=== PATIENT | female | born 1990 | race Caucasian/White ===

== ENCOUNTER 2018-04-01 18:07 | Inpatient (IN) | payer OTHER ==
[2018-04-01] MEDS ORDERED: ONDANSETRON 4 MG INJ IV (19:00)
[2018-04-01] MEDS ORDERED: ACETAMINOPHEN 325 MG TAB PO (19:00)
[2018-04-01] MEDS: SODIUM CHLORIDE 0.9% 1L BAG IV* (19:16)
[2018-04-01] MEDS: CEFTRIAXONE 2 GM/50 ML (PMX) 50 ML IVPB (19:16)
[2018-04-01] MEDS: ACETAMINOPHEN 325 MG TAB PO (19:16)
[2018-04-01 19:21] LABS: ADD MAN DIFF? NO
[2018-04-01 19:30] LABS: ABNORMAL IP MESSAGE 1; BASOPHILS % 0.1 % (0.0-2.0); EOSINOPHILS # 0.3 10^3/ul (0.0-0.5); EOSINOPHILS % 2.4 % (0.0-7.0); HEMATOCRIT 39.3 % (37.0-47.0); HEMOGLOBIN 13.2 g/dl (12.0-16.0); LYMPHOCYTES # 0.5 10^3/ul (0.8-2.9); LYMPHOCYTES % 4.4 % (15.0-51.0); MEAN CORPUSCULAR HEMOGLOBIN 29.7 pg (29.0-33.0); MEAN CORPUSCULAR HGB CONC 33.6 g/dl (32.0-37.0); MEAN CORPUSCULAR VOLUME 88.3 fl (82.0-101.0); MEAN PLATELET VOLUME 9.5 fl (7.4-10.4); MONOCYTE # 0.8 10^3/ul (0.3-0.9); MONOCYTES % 7.4 % (0.0-11.0); NEUTROPHIL # 9.4 10^3/ul (1.6-7.5); NEUTROPHILS % 84.8 % (39.0-77.0); PLATELET COUNT 185 10^3/UL (140-415); RED BLOOD COUNT 4.45 10^6/ul (4.20-5.40)
[2018-04-01 19:38] LABS: POSITIVE DIFF @See below
[2018-04-01 19:47] LABS: ALANINE AMINOTRANSFERASE 25 IU/L (13-69); ALBUMIN 3.5 g/dl (3.3-4.9); ALBUMIN/GLOBULIN RATIO 1.02; ALKALINE PHOSPHATASE 51 IU/L (42-121); ANION GAP 14 (8-16); ASPARTATE AMINO TRANSFERASE 16 IU/L (15-46); BILIRUBIN,INDIRECT 0.2 mg/dl (0-1.1); BILIRUBIN,TOTAL 0.2 mg/dl (0.2-1.3); BLOOD UREA NITROGEN 13 mg/dl (7-20); CALCIUM 8.8 mg/dl (8.4-10.2); CARBON DIOXIDE 21 mmol/L (21-31); CHLORIDE 103 mmol/L (97-110); CREATININE 1.29 mg/dl (0.44-1.00); GLUCOSE 108 mg/dl (70-220); POTASSIUM 3.7 mmol/L (3.5-5.1); SODIUM 134 mmol/L (135-144); TOTAL PROTEIN 6.9 g/dl (6.1-8.1)
[2018-04-01] MEDS: VANCOMYCIN 1 GM (PMX) 250 ML IVPB (19:48)
[2018-04-01 19:51] LABS: LACTIC ACID 0.9 mmol/L (0.5-2.0)
[2018-04-01 19:55] LABS: PROTIME 14.4 Sec (11.9-14.9); PT RATIO 1.1
[2018-04-01 19:56] LABS: PARTIAL THROMBOPLASTIN TIME 31.9 Sec (25.0-35.0)
[2018-04-01 19:59] LABS: TROPONIN-I < 0.010 ng/ml (0.000-0.120)
[2018-04-01] MEDS ORDERED: NACL 0.9% 3 ML SYG IV (20:00)
[2018-04-01] MEDS: ACYCLOVIR 500 MG in SOD CHLORIDE 0.9% 100 ML IVPB (20:03)
[2018-04-01] MEDS ORDERED: SOD CHLORIDE 0.9% 500 ML IV (21:00)
[2018-04-01 21:51] LABS: ADD UMIC YES; UR AMORPHOUS CRYSTAL FEW /HPF (NONE SEEN); UR ASCORBIC ACID NEGATIVE (NEGATIVE); UR BACTERIA FEW /HPF (NONE SEEN); UR BILIRUBIN (Dip) NEGATIVE (NEGATIVE); UR BLOOD (Dip) 2+ mg/dL (NEGATIVE); UR CLARITY CLOUDY (CLEAR); UR COLOR YELLOW (YELLOW); UR GLUCOSE (Dip) NEGATIVE (NEGATIVE); UR KETONES (Dip) NEGATIVE (NEGATIVE); UR LEUKOCYTE ESTERASE (Dip) 3+ Leu/ul (NEGATIVE); UR NITRITE (Dip) NEGATIVE (NEGATIVE); UR RBC 2 /HPF (0-5); UR SPECIFIC GRAVITY (Dip) 1.005 (1.003-1.030); UR SQUAMOUS EPITHELIAL CELL MODERATE /HPF (FEW); UR TOTAL PROTEIN (Dip) 1+ mg/dl (NEGATIVE); UR UROBILINOGEN (Dip) NEGATIVE (NEGATIVE); UR WBC 48 /HPF (0-5)
[2018-04-01] MEDS: morphine 2 MG INJ IV (22:48)
[2018-04-01] MEDS ORDERED: VANCOMYCIN IV PER PHARMACY XX (23:30)
[2018-04-01 23:44] LABS: LACTIC ACID 1.2 mmol/L (0.5-2.0)
[2018-04-01] MEDS: SOD CHLORIDE 0.9% 1,000 ML IV (23:56)
[2018-04-02] MEDS: SOD CHLORIDE 0.9% 1,000 ML IV ×3 (00:32→14:42)
[2018-04-02] MEDS: KETOROLAC 30 MG INJ IV (00:32)
[2018-04-02] MEDS: PIPER-TAZO 3.375 GM IV (PMX) 100 ML IVPB ×3 (00:32→13:50)
[2018-04-02] MEDS: ACETAMINOPHEN 325 MG TAB PO ×2 (01:18→07:30)
[2018-04-02] MEDS: VANCOMYCIN 1.25 GM in SOD CHLORIDE 0.9% 250 ML IVPB ×2 (02:59→14:43)
[2018-04-02] MEDS: ACYCLOVIR 500 MG in SOD CHLORIDE 0.9% 100 ML IVPB ×2 (02:59→10:31)
[2018-04-02 05:37] LABS: WHITE BLOOD COUNT 10.8 10^3/ul (4.8-10.8)
[2018-04-02 05:37] LABS: ABNORMAL IP MESSAGE 1; HEMATOCRIT 35.2 % (37.0-47.0); HEMOGLOBIN 11.5 g/dl (12.0-16.0); MEAN CORPUSCULAR HEMOGLOBIN 29.6 pg (29.0-33.0); MEAN CORPUSCULAR HGB CONC 32.7 g/dl (32.0-37.0); MEAN CORPUSCULAR VOLUME 90.7 fl (82.0-101.0); PLATELET COUNT 171 10^3/UL (140-415); RED BLOOD COUNT 3.88 10^6/ul (4.20-5.40); RED CELL DISTRIBUTION WIDTH 13.2 % (11.5-14.5)
[2018-04-02 05:46] LABS: ADD MAN DIFF? YES; POSITIVE DIFF @See below
[2018-04-02 05:47] LABS: HEMOGLOBIN A1C 5.3 % (0-5.9)
[2018-04-02 05:57] LABS: ALANINE AMINOTRANSFERASE 22 IU/L (13-69); ALBUMIN 2.6 g/dl (3.3-4.9); ALBUMIN/GLOBULIN RATIO 0.92; ALKALINE PHOSPHATASE 38 IU/L (42-121); ANION GAP 13 (8-16); ASPARTATE AMINO TRANSFERASE 15 IU/L (15-46); BILIRUBIN,INDIRECT 0.4 mg/dl (0-1.1); BILIRUBIN,TOTAL 0.4 mg/dl (0.2-1.3); BLOOD UREA NITROGEN 9 mg/dl (7-20); CALCIUM 7.4 mg/dl (8.4-10.2); CARBON DIOXIDE 22 mmol/L (21-31); CHLORIDE 107 mmol/L (97-110); CHOL/HDL RATIO 2.6 RATIO; CHOLESTEROL 77 mg/dl (100-200); CREATININE 1.23 mg/dl (0.44-1.00); GLUCOSE 85 mg/dl (70-220); HDL CHOLESTEROL 29 mg/dl (33-83); LDL CHOLESTEROL,CALCULATED 36 mg/dl; MAGNESIUM 1.2 mg/dl (1.7-2.5); POTASSIUM 3.6 mmol/L (3.5-5.1); SODIUM 138 mmol/L (135-144); TOTAL PROTEIN 5.4 g/dl (6.1-8.1); TRIGLYCERIDES 62 mg/dl (0-149)
[2018-04-02 05:58] LABS: LACTIC ACID 1.2 mmol/L (0.5-2.0)
[2018-04-02] MEDS: morphine 2 MG INJ IV ×2 (06:22→11:31)
[2018-04-02] MEDS: ONDANSETRON 4 MG INJ IV (06:22)
[2018-04-02 08:35] LABS: BAND NEUTROPHILS #M 2.2 10^3/ul (0.0-0.6); BAND NEUTROPHILS % (M) 21 % (0-4); EOSINOPHILS % (M) 1 % (0-7); GIANT THROMBO% (M) 1 % (0-0); LYMPHOCYTES #M 0.5 10^3/ul (0.8-2.9); LYMPHOCYTES % (M) 5 % (15-51); MONOCYTE #M 0.4 10^3/ul (0.3-0.9); MONOCYTES % (M) 4 % (0-11); PLATELET ESTIMATE NORMAL; SEG NEUT #M 7.7 10^3/ul (1.6-7.5); SEGMENTED NEUTROPHILS (M) % 69 % (39-77); SMUDGE%M 2 % (0-0)
[2018-04-02] MEDS: FLUCONAZOLE 150 MG TAB PO (10:31)
[2018-04-02] MEDS: NYSTATIN 30 GM POWDER BTL TOP ×2 (10:31→20:27)
[2018-04-02] MEDS: HYDROCODONE/APAP (5/325) TAB PO ×2 (14:42→20:27)
[2018-04-02 16:39] LABS: CREATINE KINASE 26 IU/L (23-200)
[2018-04-02] MEDS: MEROPENEM 1 GM/50ML(PMX) 50 ML IVPB ×2 (17:23→21:39)
[2018-04-02] MEDS: ACYCLOVIR 700 MG in SOD CHLORIDE 0.9% 100 ML IVPB (18:08)
[2018-04-02 18:51] LABS: CREATININE,URINE RANDOM 82.39 mg/dl (20-320)
[2018-04-02 18:53] LABS: SODIUM,URINE RANDOM 64 mmol/L (30-90)
[2018-04-03] MEDS: ONDANSETRON 4 MG INJ IV (00:32)
[2018-04-03] MEDS: ACYCLOVIR 700 MG in SOD CHLORIDE 0.9% 100 ML IVPB ×3 (01:32→19:13)
[2018-04-03] MEDS: VANCOMYCIN 1.25 GM in SOD CHLORIDE 0.9% 250 ML IVPB (03:20)
[2018-04-03 05:14] LABS: ABNORMAL IP MESSAGE 1; HEMATOCRIT 31.6 % (37.0-47.0); HEMOGLOBIN 10.3 g/dl (12.0-16.0); MEAN CORPUSCULAR HEMOGLOBIN 29.2 pg (29.0-33.0); MEAN CORPUSCULAR HGB CONC 32.6 g/dl (32.0-37.0); MEAN CORPUSCULAR VOLUME 89.5 fl (82.0-101.0); MEAN PLATELET VOLUME 10.1 fl (7.4-10.4); PLATELET COUNT 130 10^3/UL (140-415); RED BLOOD COUNT 3.53 10^6/ul (4.20-5.40); RED CELL DISTRIBUTION WIDTH 13.8 % (11.5-14.5)
[2018-04-03 05:19] LABS: ADD MAN DIFF? YES; POSITIVE DIFF @See below
[2018-04-03 05:43] LABS: PHOSPHORUS 3.3 mg/dl (2.5-4.9)
[2018-04-03 05:43] LABS: MAGNESIUM 1.3 mg/dl (1.7-2.5)
[2018-04-03] MEDS: MEROPENEM 1 GM/50ML(PMX) 50 ML IVPB ×2 (05:44→16:21)
[2018-04-03] MEDS: DIPHENHYDRAMINE 50 MG INJ IV ×3 (05:44→20:14)
[2018-04-03 05:45] LABS: ALANINE AMINOTRANSFERASE 30 IU/L (13-69); ALBUMIN 2.4 g/dl (3.3-4.9); ALBUMIN/GLOBULIN RATIO 0.85; ALKALINE PHOSPHATASE 37 IU/L (42-121); ANION GAP 10 (8-16); ASPARTATE AMINO TRANSFERASE 20 IU/L (15-46); BILIRUBIN,INDIRECT 0.4 mg/dl (0-1.1); BILIRUBIN,TOTAL 0.4 mg/dl (0.2-1.3); BLOOD UREA NITROGEN 13 mg/dl (7-20); CALCIUM 7.2 mg/dl (8.4-10.2); CARBON DIOXIDE 20 mmol/L (21-31); CHLORIDE 108 mmol/L (97-110); CREATININE 1.71 mg/dl (0.44-1.00); GLUCOSE 98 mg/dl (70-220); SODIUM 134 mmol/L (135-144); TOTAL PROTEIN 5.2 g/dl (6.1-8.1)
[2018-04-03] MEDS: SOD CHLORIDE 0.9% 1,000 ML IV ×4 (05:48→21:23)
[2018-04-03 07:28] LABS: ANISOCYTOSIS 1+ (0-0); BAND NEUTROPHILS #M 3.1 10^3/ul (0.0-0.6); BAND NEUTROPHILS % (M) 35 % (0-4); BASOPHILS % (M) 1 % (0-2); EOSINOPHILS % (M) 4 % (0-7); LYMPHOCYTES #M 0.3 10^3/ul (0.8-2.9); LYMPHOCYTES % (M) 4 % (15-51); PLATELET ESTIMATE DECREASED; POLYCHROMASIA 1+ (0-0); SEG NEUT #M 5.3 10^3/ul (1.6-7.5); SEGMENTED NEUTROPHILS (M) % 56 % (39-77); SMUDGE%M 4 % (0-0)
[2018-04-03] MEDS: MAGNESIUM SULFATE 3 GM in DEXTROSE 5% 100 ML IVPB (08:53)
[2018-04-03] MEDS: HYDROCODONE/APAP (5/325) TAB PO ×2 (08:54→16:02)
[2018-04-03] MEDS: NYSTATIN 30 GM POWDER BTL TOP ×2 (08:55→21:21)
[2018-04-03] MEDS ORDERED: MAGNESIUM SULFATE 4 GM/100 ML 100 ML IVPB (09:00)
[2018-04-03 09:55] LABS: LACTIC ACID 1.1 mmol/L (0.5-2.0)
[2018-04-03 14:16] LABS: VANCOMYCIN,TROUGH 20.6 ug/ml (10.0-20.0)
[2018-04-03] MEDS: VANCOMYCIN 750 MG in SOD CHLORIDE 0.9% 150 ML IVPB ×2 (16:00→16:22)
[2018-04-03 16:13] LABS: ANION GAP 13 (8-16); BLOOD UREA NITROGEN 11 mg/dl (7-20); CALCIUM 7.5 mg/dl (8.4-10.2); CARBON DIOXIDE 20 mmol/L (21-31); CHLORIDE 109 mmol/L (97-110); CREATININE 1.71 mg/dl (0.44-1.00); GLUCOSE 103 mg/dl (70-220); POTASSIUM 4.1 mmol/L (3.5-5.1); SODIUM 138 mmol/L (135-144)
[2018-04-03] MEDS: SOD CHLORIDE 0.9% 500 ML IV (16:22)
[2018-04-03] MEDS: ACETAMINOPHEN 325 MG TAB PO (20:15)
[2018-04-03] MEDS: CALCIUM CARBONATE 1.25 GM TAB NGT (21:21)
[2018-04-03] MEDS: LINEZOLID 600 MG/D5W (PMX) 300 ML IVPB (21:22)
[2018-04-03 23:16] LABS: ADD UMIC YES; UR ASCORBIC ACID NEGATIVE (NEGATIVE); UR BACTERIA FEW /HPF (NONE SEEN); UR BILIRUBIN (Dip) NEGATIVE (NEGATIVE); UR BLOOD (Dip) 1+ mg/dL (NEGATIVE); UR CLARITY CLOUDY (CLEAR); UR COLOR YELLOW (YELLOW); UR GLUCOSE (Dip) NEGATIVE (NEGATIVE); UR KETONES (Dip) NEGATIVE (NEGATIVE); UR LEUKOCYTE ESTERASE (Dip) 2+ Leu/ul (NEGATIVE); UR NITRITE (Dip) NEGATIVE (NEGATIVE); UR NONSQUAMOUS EPITHELIAL CELL 4 /HPF (NONE SEEN); UR RBC 3 /HPF (0-5); UR SPECIFIC GRAVITY (Dip) 1.008 (1.003-1.030); UR SQUAMOUS EPITHELIAL CELL FEW /HPF (FEW); UR TOTAL PROTEIN (Dip) 1+ mg/dl (NEGATIVE); UR UROBILINOGEN (Dip) NEGATIVE (NEGATIVE); UR WBC 31 /HPF (0-5)
[2018-04-04] MEDS: HYDROCORTISONE 1% 28 GM CR TOP ×2 (01:04→08:56)
[2018-04-04] MEDS: ACYCLOVIR 700 MG in SOD CHLORIDE 0.9% 100 ML IVPB ×3 (01:58→18:07)
[2018-04-04] MEDS: DIPHENHYDRAMINE 50 MG INJ IV ×3 (01:58→18:07)
[2018-04-04 05:14] LABS: ADD MAN DIFF? NO
[2018-04-04 05:26] LABS: BASOPHILS % 0.3 % (0.0-2.0); EOSINOPHILS # 0.2 10^3/ul (0.0-0.5); EOSINOPHILS % 5.5 % (0.0-7.0); HEMATOCRIT 32.9 % (37.0-47.0); HEMOGLOBIN 10.8 g/dl (12.0-16.0); LYMPHOCYTES # 0.9 10^3/ul (0.8-2.9); LYMPHOCYTES % 21.4 % (15.0-51.0); MEAN CORPUSCULAR HEMOGLOBIN 29.7 pg (29.0-33.0); MEAN CORPUSCULAR HGB CONC 32.8 g/dl (32.0-37.0); MEAN CORPUSCULAR VOLUME 90.4 fl (82.0-101.0); MEAN PLATELET VOLUME 10.5 fl (7.4-10.4); MONOCYTE # 0.1 10^3/ul (0.3-0.9); MONOCYTES % 2.5 % (0.0-11.0); NEUTROPHIL # 2.8 10^3/ul (1.6-7.5); NEUTROPHILS % 69.5 % (39.0-77.0); PLATELET COUNT 122 10^3/UL (140-415); RED BLOOD COUNT 3.64 10^6/ul (4.20-5.40); RED CELL DISTRIBUTION WIDTH 13.7 % (11.5-14.5)
[2018-04-04 05:50] LABS: PHOSPHORUS 2.7 mg/dl (2.5-4.9)
[2018-04-04] MEDS: HYDROCODONE/APAP (5/325) TAB PO ×2 (05:52→15:44)
[2018-04-04 05:53] LABS: ALANINE AMINOTRANSFERASE 42 IU/L (13-69); ALBUMIN 2.4 g/dl (3.3-4.9); ALBUMIN/GLOBULIN RATIO 0.92; ALKALINE PHOSPHATASE 78 IU/L (42-121); ANION GAP 10 (8-16); ASPARTATE AMINO TRANSFERASE 28 IU/L (15-46); BILIRUBIN,INDIRECT 0.2 mg/dl (0-1.1); BILIRUBIN,TOTAL 0.2 mg/dl (0.2-1.3); BLOOD UREA NITROGEN 10 mg/dl (7-20); CALCIUM 7.6 mg/dl (8.4-10.2); CARBON DIOXIDE 18 mmol/L (21-31); CHLORIDE 113 mmol/L (97-110); CREATININE 1.63 mg/dl (0.44-1.00); GLUCOSE 78 mg/dl (70-220); POTASSIUM 3.7 mmol/L (3.5-5.1); SODIUM 137 mmol/L (135-144)
[2018-04-04 05:54] LABS: MAGNESIUM 2.1 mg/dl (1.7-2.5)
[2018-04-04] MEDS: LINEZOLID 600 MG/D5W (PMX) 300 ML IVPB (08:55)
[2018-04-04] MEDS: CALCIUM CARBONATE 1.25 GM TAB NGT ×2 (08:55→20:34)
[2018-04-04] MEDS: NYSTATIN 30 GM POWDER BTL TOP (08:56)
[2018-04-04] MEDS: SOD CHLORIDE 0.9% 1,000 ML IV ×2 (09:29→15:44)
[2018-04-04] MEDS: BETAMETHASONE/CLOTRIMAZOLE 15 GM CR TOP ×2 (10:00→20:34)
[2018-04-05] MEDS: HYDROCODONE/APAP (5/325) TAB PO ×2 (02:47→08:45)
[2018-04-05] MEDS: ACYCLOVIR 700 MG in SOD CHLORIDE 0.9% 100 ML IVPB ×3 (03:52→17:25)
[2018-04-05] MEDS: SOD CHLORIDE 0.9% 1,000 ML IV ×2 (03:53→17:30)
[2018-04-05] MEDS: FLUCONAZOLE 150 MG TAB PO (08:40)
[2018-04-05] MEDS: BETAMETHASONE/CLOTRIMAZOLE 15 GM CR TOP (08:40)
[2018-04-05] MEDS: CALCIUM CARBONATE 1.25 GM TAB NGT (08:40)
[2018-04-05 11:55] LABS: ANION GAP 8 (8-16); BLOOD UREA NITROGEN 10 mg/dl (7-20); CALCIUM 8.1 mg/dl (8.4-10.2); CARBON DIOXIDE 24 mmol/L (21-31); CHLORIDE 111 mmol/L (97-110); CREATININE 1.28 mg/dl (0.44-1.00); GLUCOSE 89 mg/dl (70-220); POTASSIUM 3.9 mmol/L (3.5-5.1); SODIUM 139 mmol/L (135-144)
[2018-04-05] MEDS: DIPHENHYDRAMINE 50 MG INJ IV (12:31)
[2018-04-05 13:39] LABS: HSV 1 IGG ANTIBODY <0.90 index; HSV 2 IGG ANTIBODY 8.98 index
[2018-04-06 03:31] LABS: HERPES SIMPLEX 1 DNA NOT DETECTED; HERPES SIMPLEX 2 DNA NOT DETECTED; HERPES SIMPLEX PCR SOURCE SERUM
[2018-04-07 14:31] LABS: PROCALCITONIN 5.67 ng/mL (<0.10)
[2018-04-08 15:51] LABS: WEST NILE VIRUS ANTIBODY (IGG) <1.30 index; WEST NILE VIRUS ANTIBODY (IGM) <0.90 index
== END 2018-04-05 18:00 | disposition home or self-care (01) | DRG 871 ==
LOC: ICU 18:57 → E/R 18:07 → PP2 04-04 14:38
DX: A41.9 Sepsis, unspecified organism (principal); R65.21 Severe sepsis with septic shock; B00.3 Herpesviral meningitis; N17.0 Acute kidney failure with tubular necrosis; N39.0 Urinary tract infection, site not specified; Z68.42 Body mass index [BMI] 45.0-49.9, adult; E66.01 Morbid (severe) obesity due to excess calories; B96.5 Pseudomonas (aeruginosa) (mallei) (pseudomallei) as the cause of diseases classified elsewhere; B37.3 Candidiasis of vulva and vagina; L30.4 Erythema intertrigo; F41.9 Anxiety disorder, unspecified
CPT/HCPCS: 71045; 76775; 80048; 80053; 80061; 80202; 81001; 81003; 82540; 82550; 83036; 83605; 83735; 84100; 84145; 84155; 84300; 84443; 84484; 84703; 85025; 85610; 85730; 86692; 86788; 86789; 87040; 87081; 87086; 87529; 89190; 93005; 99291-25

== ENCOUNTER 2018-04-28 17:25 | Emergency (ER) | payer OTHER ==
[2018-04-28] MEDS: SODIUM CHLORIDE 0.9% 1L BAG IV* (21:00)
[2018-04-28 21:12] LABS: ADD MAN DIFF? NO
[2018-04-28 21:14] LABS: WHITE BLOOD COUNT 7.7 10^3/ul (4.8-10.8)
[2018-04-28 21:14] LABS: BASOPHIL # 0.1 10^3/ul (0.0-0.1); BASOPHILS % 0.7 % (0.0-2.0); EOSINOPHILS # 0.3 10^3/ul (0.0-0.5); EOSINOPHILS % 4.2 % (0.0-7.0); HEMATOCRIT 37.9 % (37.0-47.0); HEMOGLOBIN 12.5 g/dl (12.0-16.0); LYMPHOCYTES # 2.7 10^3/ul (0.8-2.9); LYMPHOCYTES % 34.9 % (15.0-51.0); MEAN CORPUSCULAR HEMOGLOBIN 29.3 pg (29.0-33.0); MEAN PLATELET VOLUME 9.9 fl (7.4-10.4); MONOCYTE # 0.5 10^3/ul (0.3-0.9); MONOCYTES % 6.5 % (0.0-11.0); NEUTROPHIL # 4.1 10^3/ul (1.6-7.5); NEUTROPHILS % 53.4 % (39.0-77.0); PLATELET COUNT 275 10^3/UL (140-415); RED BLOOD COUNT 4.26 10^6/ul (4.20-5.40); RED CELL DISTRIBUTION WIDTH 13.9 % (11.5-14.5)
[2018-04-28 21:28] LABS: PROTIME 12.2 Sec (11.9-14.9)
[2018-04-28 21:29] LABS: PARTIAL THROMBOPLASTIN TIME 29.3 Sec (25.0-35.0)
[2018-04-28 21:33] LABS: LACTIC ACID 0.8 mmol/L (0.5-2.0)
[2018-04-28 21:35] LABS: ANION GAP 16 (8-16); BLOOD UREA NITROGEN 11 mg/dl (7-20); CALCIUM 9.4 mg/dl (8.4-10.2); CARBON DIOXIDE 25 mmol/L (21-31); CHLORIDE 104 mmol/L (97-110); CREATININE 0.64 mg/dl (0.44-1.00); GLUCOSE 87 mg/dl (70-220); SODIUM 141 mmol/L (135-144)
[2018-04-28 21:48] LABS: TROPONIN-I < 0.012 ng/ml (0.000-0.120)
[2018-04-28 22:13] LABS: ADD UMIC NO; UR ASCORBIC ACID NEGATIVE (NEGATIVE); UR BILIRUBIN (Dip) NEGATIVE (NEGATIVE); UR BLOOD (Dip) NEGATIVE (NEGATIVE); UR CLARITY CLEAR (CLEAR); UR COLOR YELLOW (YELLOW); UR GLUCOSE (Dip) NEGATIVE (NEGATIVE); UR KETONES (Dip) NEGATIVE (NEGATIVE); UR LEUKOCYTE ESTERASE (Dip) NEGATIVE Leu/ul (NEGATIVE); UR NITRITE (Dip) NEGATIVE (NEGATIVE); UR SPECIFIC GRAVITY (Dip) 1.016 (1.003-1.030); UR TOTAL PROTEIN (Dip) NEGATIVE (NEGATIVE); UR UROBILINOGEN (Dip) NEGATIVE (NEGATIVE)
[2018-04-28] MEDS: KETOROLAC 15 MG INJ IV (22:58)
[2018-04-28] MEDS: METOCLOPRAMIDE 10 MG INJ IV (22:58)
== END 2018-04-28 23:28 | disposition home or self-care (01) ==
LOC: E/R 17:25
DX: R51 Headache (principal); R07.9 Chest pain, unspecified; Z86.19 Personal history of other infectious and parasitic diseases; Z86.61 Personal history of infections of the central nervous system
CPT/HCPCS: 36415; 71045; 80048; 81003; 81025; 83605; 84484; 85025; 85610; 85730; 87040; 87086; 93005; 96374; 96375; 99285-25

== ENCOUNTER 2018-09-25 10:35 | Emergency (ER) | payer OTHER ==
[2018-09-25 11:15] LABS: URINE BLOOD (Dip) POC Negative (NEGATIVE); URINE GLUCOSE (Dip) POC Negative (NEGATIVE); URINE KETONES (Dip) POC Negative (NEGATIVE); URINE LEUKOCYTE EST (Dip) POC Negative (NEGATIVE); URINE NITRITE (Dip) POC Negative (NEGATIVE); URINE TOTAL PROTEIN POC Negative (NEGATIVE)
== END 2018-09-25 14:02 | disposition home or self-care (01) ==
LOC: FTE 10:35
DX: S33.5XXA Sprain of ligaments of lumbar spine, initial encounter (principal); X58.XXXA Exposure to other specified factors, initial encounter; Y92.9 Unspecified place or not applicable
CPT/HCPCS: 72100; 81003; 81025; 99283-25

== ENCOUNTER 2018-10-03 16:06 | Emergency (ER) | payer OTHER ==
[2018-10-03] MEDS: ACETAMINOPHEN 500 MG TAB PO (19:27)
[2018-10-03 22:18] LABS: MONOTEST Negative (NEG)
== END 2018-10-03 22:48 | disposition home or self-care (01) ==
LOC: FTE 16:06
DX: J02.9 Acute pharyngitis, unspecified (principal)
CPT/HCPCS: 36415; 86308; 87880; 99283

== ENCOUNTER 2019-04-07 22:17 | Emergency (ER) | payer OTHER | END 2019-04-08 00:46 | disposition home or self-care (01) | LOC: FTE 22:17 | DX: S61.213A Laceration without foreign body of left middle finger without damage to nail, initial encounter (principal); W26.0XXA Contact with knife, initial encounter; Y92.89 Other specified places as the place of occurrence of the external cause | CPT/HCPCS: 12001; 99282-25 ==

== ENCOUNTER 2019-04-14 19:36 | Emergency (ER) | payer OTHER | END 2019-04-14 20:14 | disposition home or self-care (01) | LOC: FTE 19:36 | DX: Z48.02 Encounter for removal of sutures (principal) | CPT/HCPCS: 99281; Z7502 ==